=== PATIENT | male | born 1995 | race Caucasian/White ===

== ENCOUNTER 2017-04-07 12:00 | Emergency (ER) | payer OTHER ==
[~2017-04-07] VITALS: Ht 180.3 cm; Wt 103.0 kg
[~2017-04-07 12:00] MED LIST: ANXIETY PILL; BP MED UNKNOWN; CITRATE OF MAG296 ML PO; CYCLOBENZAPRINE5 MG PO; FLEET ENEMA118 ML RC; FLEXERIL PO; HYDROCODON-ACE1 EAC7 PO; HYDROCODONE-AP1 EAC6 PO; HYDROXYZINE HCL25 M1 PO; IBUPROFEN 600600 M1 PO; IBUPROFEN 800800 M1 PO; IBUPROFEN 800800 MG PO; KEFLEX500 MG PO; LISINOPRIL10 MG PO; MUSCLE RELAXER; NAPROSYN500 MG PO; NOHOMEMEDICATIONS; NORCO 5-325 TA1 EACH PO; PENICILLIN V P500 MG PO; POLYMYXIN B/TMP10 ML OPHTHALMIC; PROTONIX40 MG PO; SERTRALINE HCL50 MG PO; TRAMADOL 50 MG50 MG PO; TRAZODONE HCL50 MG; ULTRAM 50MG TAB50 MG PO; ZOFRAN4 MG PO
[2017-04-07 12:29] LABS: URINE BLOOD NEGATIVE (Negative); URINE CLARITY CLEAR; URINE COLOR YELLOW; URINE GLUCOSE-RANDOM NEGATIVE (Negative); URINE KETONES NEGATIVE (Negative); URINE LEUKOCYTES NEGATIVE (Negative); URINE NITRITE NEGATIVE (Negative); URINE PROTEIN TRACE (Negative); URINE UROBILINOGEN 0.2 E.U./dl (0.2-1.0)
[2017-04-07 12:32] LABS: ICTOTEST (BILI CONFIRMATORY) Negative (Negative); URINE BILIRUBIN 2+ (Negative)
[2017-04-07 12:38] LABS: ABSOLUTE EOSINOPHILS 0.3 thou/uL (0.0-0.7); ABSOLUTE LYMPHOCYTES 1.4 thou/uL (0.8-5.3); ABSOLUTE MONOCYTES 0.6 thou/uL (0.0-1.2); ABSOLUTE NEUTROPHILS 5.4 thou/uL (1.6-8.1); BASOPHILS 0.3 %; EOSINOPHILS 3.5 %; HEMATOCRIT 51.8 % (42.0-52.0); HEMOGLOBIN 18.3 gm/dL (14.0-18.0); LYMPHOCYTES 18.6 %; MCH 31.2 pg (26.0-34.0); MCHC 35.4 g/dL (28.0-37.0); MCV 88.4 fL (80.0-100.0); MONOCYTES 7.5 %; MPV 7.9 fl. (7.2-11.1); NUCLEATED RBCS 0 /100WBC; PLATELET COUNT* 208 thou/uL (150-400); POLYS 70.1 %; RBC 5.86 mil/uL (4.50-6.00); RDW-CV 12.6 % (10.5-14.5); WBC 7.7 thou/uL (4.0-11.0)
[2017-04-07 12:48] LABS: CALCIUM 8.7 mg/dL (8.5-10.1); CREATININE 0.9 mg/dL (0.6-1.3)
[2017-04-07 12:52] LABS: TOTAL BILIRUBIN 0.5 mg/dL (<0.1-1.0); TOTAL PROTEIN 7.5 g/dL (6.4-8.2)
[2017-04-07] MEDS ORDERED: ZOFRAN ODT4 MG PO (13:01)
[2017-04-07] MEDS ORDERED: PROMS25 WY RECTAL (13:01)
[2017-04-07 13:16] VITALS: BP 131/94
== END 2017-04-07 13:17 | disposition home or self-care (01) ==
LOC: M.ERS 12:00
PROVIDERS: Physician Assistant
DX: R11.2 Nausea with vomiting, unspecified (principal); F10.99 Alcohol use, unspecified with unspecified alcohol-induced disorder; F17.220 Nicotine dependence, chewing tobacco, uncomplicated; F31.9 Bipolar disorder, unspecified; F41.9 Anxiety disorder, unspecified; F90.9 Attention-deficit hyperactivity disorder, unspecified type; I10 Essential (primary) hypertension

== ENCOUNTER 2017-05-19 08:16 | Emergency (ER) | payer OTHER ==
[~2017-05-19] VITALS: Ht 180.3 cm; Wt 102.1 kg
[~2017-05-19 08:16] MED LIST changes: +PROMS25 WY RECTAL; +ZOFRAN ODT4 MG PO
[2017-05-19] MEDS ORDERED: AMOXICILLIN 50500 MG PO (08:31)
[2017-05-19 08:37] VITALS: BP 151/95
== END 2017-05-19 08:40 | disposition home or self-care (01) ==
LOC: M.ERS 08:16
DX: J06.9 Acute upper respiratory infection, unspecified (principal); F31.9 Bipolar disorder, unspecified; F41.9 Anxiety disorder, unspecified; F90.9 Attention-deficit hyperactivity disorder, unspecified type; I10 Essential (primary) hypertension; F17.220 Nicotine dependence, chewing tobacco, uncomplicated

== ENCOUNTER 2017-07-28 07:15 | Emergency (ER) | payer OTHER ==
[~2017-07-28] VITALS: Ht 180.3 cm; Wt 103.4 kg
[~2017-07-28 07:15] MED LIST changes: +AMOXICILLIN 50500 MG PO
[2017-07-28] MEDS ORDERED: CHOLESTEROL MED (07:35)
[2017-07-28] MEDS ORDERED: B/P MEDS (07:35)
[2017-07-28 08:02] VITALS: BP 156/80
== END 2017-07-28 08:04 | disposition home or self-care (01) ==
LOC: M.ERS 07:15
DX: J06.9 Acute upper respiratory infection, unspecified (principal); F31.9 Bipolar disorder, unspecified; F90.9 Attention-deficit hyperactivity disorder, unspecified type; I10 Essential (primary) hypertension; E78.00 Pure hypercholesterolemia, unspecified

== ENCOUNTER 2017-09-16 11:50 | Emergency (ER) | payer OTHER ==
[~2017-09-16] VITALS: Ht 180.3 cm; Wt 106.1 kg
[~2017-09-16 11:50] MED LIST changes: +B/P MEDS; +CHOLESTEROL MED
[2017-09-16] MEDS ORDERED: PREDNISONE 10 M10 MG PO (12:32)
== END 2017-09-16 12:39 | disposition home or self-care (01) ==
LOC: M.ERS 11:50
DX: L23.7 Allergic contact dermatitis due to plants, except food (principal); I10 Essential (primary) hypertension; E78.00 Pure hypercholesterolemia, unspecified; F31.9 Bipolar disorder, unspecified; F41.9 Anxiety disorder, unspecified; F90.9 Attention-deficit hyperactivity disorder, unspecified type

== ENCOUNTER 2018-07-23 22:07 | Emergency (ER) | payer OTHER ==
[~2018-07-23] VITALS: Ht 180.3 cm; Wt 106.6 kg
[~2018-07-23 22:07] MED LIST changes: +PREDNISONE 10 M10 MG PO
[2018-07-23 22:41] VITALS: BP 135/78
== END 2018-07-23 22:44 | disposition home or self-care (01) ==
LOC: M.ERS 22:07
DX: S00.83XA Contusion of other part of head, initial encounter (principal); F31.9 Bipolar disorder, unspecified; F41.9 Anxiety disorder, unspecified; F90.9 Attention-deficit hyperactivity disorder, unspecified type; I10 Essential (primary) hypertension; E78.00 Pure hypercholesterolemia, unspecified; Z87.891 Personal history of nicotine dependence; Y04.0XXA Assault by unarmed brawl or fight, initial encounter; Y93.89 Activity, other specified; Y92.89 Other specified places as the place of occurrence of the external cause; Y99.8 Other external cause status

== ENCOUNTER 2018-09-06 20:02 | Emergency (ER) | payer OTHER ==
[~2018-09-06] VITALS: Ht 182.9 cm; Wt 90.7 kg
[2018-09-06] MEDS ORDERED: PREDNISONE 10 M10 M1 PO (20:19)
[2018-09-06 20:34] VITALS: BP 141/76
== END 2018-09-06 20:35 | disposition home or self-care (01) ==
LOC: M.ERS 20:02
DX: L25.9 Unspecified contact dermatitis, unspecified cause (principal); F17.220 Nicotine dependence, chewing tobacco, uncomplicated; F31.9 Bipolar disorder, unspecified; F41.9 Anxiety disorder, unspecified; I10 Essential (primary) hypertension; E78.00 Pure hypercholesterolemia, unspecified; F90.9 Attention-deficit hyperactivity disorder, unspecified type

== ENCOUNTER 2018-10-24 17:27 | Emergency (ER) | payer OTHER ==
[~2018-10-24] VITALS: Ht 180.3 cm; Wt 105.7 kg
[~2018-10-24 17:27] MED LIST changes: +PREDNISONE 10 M10 M1 PO
[2018-10-24] MEDS ORDERED: PREDNISONE50 MG PO (18:16)
[2018-10-24 18:26] VITALS: BP 150/90
== END 2018-10-24 18:27 | disposition home or self-care (01) ==
LOC: M.ERS 17:27
DX: S40.862A Insect bite (nonvenomous) of left upper arm, initial encounter (principal); L08.9 Local infection of the skin and subcutaneous tissue, unspecified; F31.9 Bipolar disorder, unspecified; F41.9 Anxiety disorder, unspecified; F90.9 Attention-deficit hyperactivity disorder, unspecified type; I10 Essential (primary) hypertension; E78.00 Pure hypercholesterolemia, unspecified; F17.220 Nicotine dependence, chewing tobacco, uncomplicated; W57.XXXA Bitten or stung by nonvenomous insect and other nonvenomous arthropods, initial encounter; Y93.89 Activity, other specified; Y92.89 Other specified places as the place of occurrence of the external cause; Y99.8 Other external cause status

== ENCOUNTER 2019-06-25 00:05 | Emergency (ER) | payer OTHER ==
[~2019-06-25] VITALS: Ht 180.3 cm; Wt 108.9 kg
[~2019-06-25 00:05] MED LIST changes: +PREDNISONE50 MG PO
[2019-06-25 01:05] VITALS: BP 146/88
== END 2019-06-25 01:05 | disposition home or self-care (01) ==
LOC: M.ERS 00:05
DX: S81.011A Laceration without foreign body, right knee, initial encounter (principal); I10 Essential (primary) hypertension; E78.00 Pure hypercholesterolemia, unspecified; F41.9 Anxiety disorder, unspecified; F31.9 Bipolar disorder, unspecified; F90.9 Attention-deficit hyperactivity disorder, unspecified type; Z87.891 Personal history of nicotine dependence; W22.03XA Walked into furniture, initial encounter; Y93.89 Activity, other specified; Y92.89 Other specified places as the place of occurrence of the external cause; Y99.8 Other external cause status

== ENCOUNTER 2020-01-20 23:21 | Emergency (ER) | payer OTHER ==
[~2020-01-20] VITALS: Ht 180.3 cm; Wt 103.0 kg
[2020-01-21] MEDS ORDERED: NORCO 5-325 TA1 EAC2 PO (00:18)
[2020-01-21] MEDS ORDERED: PREDNISONE 20 M20 M1 PO (00:18)
[2020-01-21 00:24] VITALS: BP 170/108
== END 2020-01-21 00:25 | disposition home or self-care (01) ==
LOC: M.ERS 23:21
DX: M79.672 Pain in left foot (principal); I10 Essential (primary) hypertension; E78.00 Pure hypercholesterolemia, unspecified; Z87.891 Personal history of nicotine dependence

== ENCOUNTER 2020-09-08 08:58 | Emergency (ER) | payer OTHER ==
[~2020-09-08] VITALS: Ht 180.3 cm; Wt 105.7 kg
[~2020-09-08 08:58] MED LIST changes: +NORCO 5-325 TA1 EAC2 PO; +PREDNISONE 20 M20 M1 PO
[2020-09-08 09:05] VITALS: BP 154/110
[2020-09-08] MEDS ORDERED: DIPHENHIST50 MG PO (09:23)
[2020-09-08] MEDS ORDERED: PREDNISONE 10 M10 M1 PO (09:23)
== END 2020-09-08 09:52 | disposition home or self-care (01) ==
LOC: M.ERS 08:58
DX: L25.9 Unspecified contact dermatitis, unspecified cause (principal); I10 Essential (primary) hypertension; E78.00 Pure hypercholesterolemia, unspecified; F17.220 Nicotine dependence, chewing tobacco, uncomplicated

== ENCOUNTER 2020-10-07 05:22 | Emergency (ER) | payer OTHER ==
[~2020-10-07] VITALS: Ht 180.3 cm; Wt 105.7 kg
[~2020-10-07 05:22] MED LIST changes: +DIPHENHIST50 MG PO
[2020-10-07 07:50] LABS: URINE BILIRUBIN NEGATIVE (Negative); URINE BLOOD NEGATIVE (Negative); URINE CLARITY CLEAR; URINE COLOR YELLOW; URINE GLUCOSE-RANDOM NEGATIVE (Negative); URINE KETONES NEGATIVE (Negative); URINE LEUKOCYTES-REFLEX NEGATIVE (Negative); URINE NITRITE-REFLEX NEGATIVE (Negative); URINE PROTEIN NEGATIVE (Negative); URINE SPECIFIC GRAVITY 1.015 (1.005-1.030); URINE UROBILINOGEN 0.2 E.U./dl (0.2-1.0)
[2020-10-07] MEDS ORDERED: ZOFRAN ODT4 MG DISSOLVE (08:30)
[2020-10-07] MEDS ORDERED: HYDROCODON-ACE1 EAC7 PO (08:30)
[2020-10-07 08:46] LABS: HEMATOCRIT 44.6 % (42.0-52.0); HEMOGLOBIN 15.6 gm/dL (14.0-18.0); MCH 31.9 pg (26.0-34.0); MCHC 35.1 g/dL (28.0-37.0); MPV 7.7 fl. (7.2-11.1); RBC 4.9 mil/uL (4.50-6.00); RDW-CV 13.3 % (10.5-14.5); WBC 9.1 thou/uL (4.0-11.0)
[2020-10-07 08:56] LABS: CALCIUM 8.4 mg/dL (8.5-10.1); CREATININE 0.9 mg/dL (0.6-1.3); POTASSIUM 4.2 mmol/L (3.5-5.1)
[2020-10-07 09:00] LABS: ALBUMIN 3.6 g/dL (3.4-5.0); TOTAL BILIRUBIN 0.4 mg/dL (<0.1-1.0); TOTAL PROTEIN 7.2 g/dL (6.4-8.2)
[2020-10-07 10:03] VITALS: BP 157/83
== END 2020-10-07 10:04 | disposition home or self-care (01) ==
LOC: M.ERS 05:22
PROVIDERS: Emergency Medicine Emergency Medical Services; Personal Emergency Response Attendant
DX: R10.12 Left upper quadrant pain (principal); I10 Essential (primary) hypertension; E78.00 Pure hypercholesterolemia, unspecified; F17.220 Nicotine dependence, chewing tobacco, uncomplicated

== ENCOUNTER 2021-01-03 07:40 | Emergency (ER) | payer BC ==
[~2021-01-03] VITALS: Ht 180.3 cm; Wt 103.4 kg
[~2021-01-03 07:40] MED LIST changes: +ZOFRAN ODT4 MG DISSOLVE
[2021-01-03] MEDS ORDERED: PREDNISONE 20 M20 M1 PO (08:06)
[2021-01-03] MEDS ORDERED: HYDROCODON-ACE1 EAC7 PO (08:06)
[2021-01-03 08:10] VITALS: BP 191/117
== END 2021-01-03 08:11 | disposition home or self-care (01) ==
LOC: M.ERS 07:40
DX: M10.9 Gout, unspecified (principal); E78.00 Pure hypercholesterolemia, unspecified; I10 Essential (primary) hypertension

== ENCOUNTER 2021-01-07 17:53 | Emergency (ER) | payer BC ==
[~2021-01-07] VITALS: Ht 177.8 cm; Wt 103.4 kg
[2021-01-07 18:31] LABS: ABSOLUTE EOSINOPHILS 0.3 thou/uL (0.0-0.7); ABSOLUTE LYMPHOCYTES 1.5 thou/uL (0.8-5.3); ABSOLUTE MONOCYTES 0.7 thou/uL (0.0-1.2); ABSOLUTE NEUTROPHILS 5.9 thou/uL (1.6-8.1); BASOPHILS 0.4 %; EOSINOPHILS 3.1 %; HEMATOCRIT 46.2 % (42.0-52.0); HEMOGLOBIN 16.2 gm/dL (14.0-18.0); LYMPHOCYTES 18.3 %; MCH 31.1 pg (26.0-34.0); MCHC 35.2 g/dL (28.0-37.0); MCV 88.5 fL (80.0-100.0); MPV 7.3 fl. (7.2-11.1); NUCLEATED RBCS 0 /100WBC; PLATELET COUNT* 283 thou/uL (150-400); POLYS 70.2 %; RBC 5.22 mil/uL (4.50-6.00); RDW-CV 12.9 % (10.5-14.5); WBC 8.4 thou/uL (4.0-11.0)
[2021-01-07 18:40] LABS: CALCIUM 9.4 mg/dL (8.5-10.1); CREATININE 0.9 mg/dL (0.6-1.3); POTASSIUM 4.1 mmol/L (3.5-5.1)
[2021-01-07 18:50] LABS: ALBUMIN 4.1 g/dL (3.4-5.0); TOTAL BILIRUBIN 0.3 mg/dL (<0.1-1.0); TOTAL PROTEIN 8.8 g/dL (6.4-8.2); URIC ACID* 4.8 mg/dL (2.6-7.2)
[2021-01-07] MEDS ORDERED: IBUPROFEN 800800 M1 PO (18:57)
[2021-01-07 19:16] VITALS: BP 158/67
== END 2021-01-07 19:17 | disposition home or self-care (01) ==
LOC: M.ERS 17:53
PROVIDERS: Physician Assistant
DX: M10.9 Gout, unspecified (principal); F41.9 Anxiety disorder, unspecified; F90.9 Attention-deficit hyperactivity disorder, unspecified type; I10 Essential (primary) hypertension; E78.00 Pure hypercholesterolemia, unspecified; Z77.22 Contact with and (suspected) exposure to environmental tobacco smoke (acute) (chronic); Z88.8 Allergy status to other drugs, medicaments and biological substances